=== PATIENT | male | born 1990 | race Caucasian/White ===

== ENCOUNTER 2021-08-09 21:41 | Emergency (ER) | payer BC ==
[~2021-08-09] VITALS: Ht 175.3 cm; Wt 68.0 kg
[2021-08-09 22:09] VITALS: BP 161/73
[2021-08-09] MEDS ORDERED: HYDR-4303 PO (22:56)
[2021-08-09] MEDS ORDERED: IBUP-1955 PO (22:56)
== END 2021-08-09 23:38 | disposition home or self-care (01) ==
LOC: ER 21:44
DX: S82.61XA Displaced fracture of lateral malleolus of right fibula, initial encounter for closed fracture (principal); V00.131A Fall from skateboard, initial encounter; Y93.51 Activity, roller skating (inline) and skateboarding; Y92.89 Other specified places as the place of occurrence of the external cause; Y99.8 Other external cause status
CPT/HCPCS: 73610-TC